=== PATIENT | female | born 1980 | race Two or more races ===

== ENCOUNTER 2021-05-14 07:09 | Outpatient (CLI) | payer BC ==
[2021-05-15] MEDS ORDERED: MONT10TA33 PO (13:13)
[2021-05-15] MEDS ORDERED: FAMO-132 PO (13:13)
[2021-05-17] MEDS ORDERED: IBUP-1957 PO (13:25)
[2021-05-17] MEDS ORDERED: HYDR-3972 PO (13:25)
== END 2021-05-14 23:59 | disposition home or self-care (01) ==
LOC: LAB 07:09
PROVIDERS: ATTEND Internal Medicine
DX: Z01.812 Encounter for preprocedural laboratory examination (principal); Z20.822 Contact with and (suspected) exposure to COVID-19

== ENCOUNTER 2021-05-15 05:24 | Inpatient (IN) | payer BC ==
[~2021-05-15] VITALS: Ht 160 cm; Wt 68.0 kg
[2021-05-15] MEDS ORDERED: CEFAZOLIN 50 ML IV ONE (05:44)
[2021-05-15 06:17] LABS: *URINE HCG, QUAL NEG (NEGATIVE)
[2021-05-15] MEDS ORDERED: METHYLENE BLUE 50 MG/10 ML AMPUL (0.5%) ONE (06:46)
[2021-05-15] MEDS ORDERED: BUPIVACAINE/EPI PF 0.25% 30 ML VIAL ONE (06:47)
[2021-05-15] MEDS ORDERED: HYDROMORPHONE 2 MG/1 ML DISP.SYRIN ONE (07:21)
[2021-05-15] MEDS ORDERED: MIDAZOLAM HCL 2 MG/2 ML VIAL ONE (07:21)
[2021-05-15] MEDS ORDERED: ROCURONIUM BROMIDE 50 MG/5 ML VIAL ONE (07:22)
[2021-05-15] MEDS ORDERED: MORPHINE SULFATE 4 MG/1 ML DISP.SYRIN IV PRN ×2 (09:45→20:00)
[2021-05-15] MEDS ORDERED: ONDANSETRON 4 MG/2 ML VIAL IV PRN (09:45)
[2021-05-15] MEDS ORDERED: HYDROMORPHONE 1 MG/1 ML DISP.SYRIN ONE (10:12)
[2021-05-15 10:40] VITALS: BP 120/65
[2021-05-15 10:55] VITALS: BP 115/68
--- NOTE | 2021-05-15 11:00 | NUR ---
received from ER still sleepy but arousable, able to follow instructions, vs taken, initial assessment done, ivf [id number] infusing at 100ml/hr- placed on iv pump, on R/A, no shortness of breath noted, abdominal dsg dry and intact, no bowel sounds noted, kept npo for now , IS done-able todo up to 1500ml level, oviedo cath draining light yellow urine, continue to monitor, safety measures initiated, call light within reach
[2021-05-15 11:24] VITALS: BP 109/74
[2021-05-15] MEDS ORDERED: MORPHINE SULFATE 2 MG/1 ML DISP.SYRIN IV PRN (12:30)
[2021-05-15] MEDS ORDERED: HYDROCODONE/APAP 5-325MG TABLET PO PRN (12:30)
[2021-05-15] MEDS ORDERED: ACETAMINOPHEN 325 MG TABLET PO PRN (12:30)
[2021-05-15] MEDS ORDERED: SENNOSIDES 1 TABLET PO PRN (12:30)
[2021-05-15] MEDS ORDERED: DOCUSATE SODIUM 100 MG CAPSULE PO PRN (12:30)
--- NOTE | 2021-05-15 13:05 | NUR ---
c/o pain for surgical site 06/16, medicated with morphine 2mg as ordered prn, deep breathing exercisers done- tolerated well, moved legs very well
[2021-05-15] MEDS ORDERED: MONT10TA33 PO (13:13)
[2021-05-15] MEDS ORDERED: FAMO-132 PO (13:13)
--- NOTE | 2021-05-15 15:00 | NUR ---
oral care done, kept still npo, continue to monitor
[2021-05-15] MEDS: CEFAZOLIN 1 G in IV DEXTROSE 5% 50 ML IV SCH ×2 (15:50→23:42)
[2021-05-15 16:00] VITALS: BP 104/68
[2021-05-15 16:35] VITALS: BP 114/68
[2021-05-15] MEDS: HYDROMORPHONE 1 MG/1 ML DISP.SYRIN IV PRN ×2 (16:38→23:47)
[2021-05-15] MEDS: IV D5LR 1,000 ML IV PRN (16:45)
--- NOTE | 2021-05-15 16:45 | NUR ---
c/o post-op pain- BP 114/64 HR 72, more awake now, on the phone, visitor at bedside, medicated wisth Dilaudid 1mg iv as ordered breakthrough pain, IS done x 10 up to 2000ml level, good out put in the oviedo bag noted, call light within reach
--- NOTE | 2021-05-15 18:10 | NUR ---
c/o nausea- medicated with zofran 4mg iv prn, states pain lesser, abd. dsg dry and intact, voided qs, vs wnl, all needs attended and met, call light within reach
[2021-05-15] MEDS: ONDANSETRON 4 MG/2 ML VIAL IV PRN (18:11)
[2021-05-15 20:24] VITALS: BP 104/62
[2021-05-16] MEDS: IV D5LR 1,000 ML IV PRN (00:07)
[2021-05-16 04:00] VITALS: BP 108/57
[2021-05-16] MEDS: HYDROMORPHONE 1 MG/1 ML DISP.SYRIN IV PRN (04:18)
[2021-05-16] MEDS ORDERED: ACETAMINOPHEN/CODEINE 300-30 MG TABLET PO PRN ×2 (06:00→10:00)
[2021-05-16 06:36] LABS: HEMATOCRIT 28.8 % (31.2-41.9); MEAN CORPUSCULAR VOLUME 71.7 fL (75.5-95.3); PLATELET COUNT (AUTO) 186 K/uL (179-408)
[2021-05-16 07:25] LABS: BILIRUBIN,TOTAL 0.5 mg/dL (0.2-1.0); CREATININE 0.7 mg/dL (0.6-1.3); POTASSIUM 3.2 mmol/L (3.5-5.1); TOTAL PROTEIN, SERUM 5.6 g/dL (6.4-8.2)
[2021-05-16 08:00] VITALS: BP 129/87
[2021-05-16] MEDS: ONDANSETRON 4 MG/2 ML VIAL IV PRN (08:54)
[2021-05-16] MEDS ORDERED: IBUPROFEN 800 MG TABLET PO PRN (10:00)
[2021-05-16 11:47] VITALS: BP 101/64
[2021-05-16] MEDS: POTASSIUM CHLORIDE 20 MEQ TAB.PRT.SR PO SCH ×2 (14:16→16:45)
[2021-05-16 16:12] VITALS: BP 110/65
[2021-05-16] MEDS: DOCUSATE SODIUM 100 MG CAPSULE PO SCH (16:46)
--- NOTE | 2021-05-16 18:45 | NUR ---
Patient is alert/oriented x4, denies pain. Dr. Barry made rounds or to d/c FC, patient is able to void. Did not request any pain medication during the shift. IV infusion dc, kept heplock in place per MR order. MD removed dressing, covered with dry dressing. Staple removal kit, steristrips at bedside per MD request, reg will be removed tomorrow 05/17. Patient is able to pass gas, MD order regular diet. Patient tried to get up and sat on the chair, tolerated well. She was noted with N/V at the start of the shift x1, no episode thereafter. No distress identified. Frequent visual check done. Kept call light within reach. Assisted with ADLs. All needs attended. Kept environment safe. All due meds given as ordered. Will endorse to the next shift for continuity of care.
[2021-05-16 20:00] VITALS: BP 107/74
[2021-05-17 04:00] VITALS: BP 124/58
[2021-05-17 06:34] LABS: HEMATOCRIT 28.7 % (31.2-41.9); MEAN CORPUSCULAR HEMOGLOBIN 23.1 uug (24.7-32.8); MEAN CORPUSCULAR VOLUME 72.1 fL (75.5-95.3); PLATELET COUNT (AUTO) 179 K/uL (179-408)
[2021-05-17 07:00] LABS: CREATININE 0.6 mg/dL (0.6-1.3); MAGNESIUM 1.9 mg/dL (1.8-2.4); PHOSPHOROUS 3.3 mg/dL (2.5-4.9); POTASSIUM 3.6 mmol/L (3.5-5.1)
--- NOTE | 2021-05-17 08:00 | NUR ---
awake alert and oriented x4, very pleasant, ambulated to BR and voided qs, states feeling better, taking food well, no n/v, abdominal dsg dry and intact, passing gas but no BM yet, explained plan of care- verbalized understanding, call light within reach
[2021-05-17] MEDS: DOCUSATE SODIUM 100 MG CAPSULE PO SCH (08:27)
[2021-05-17] MEDS ORDERED: MONTELUKAST SODIUM 10 MG TABLET PO SCH (09:00)
[2021-05-17] MEDS ORDERED: FAMOTIDINE 20 MG TABLET PO SCH (09:00)
--- NOTE | 2021-05-17 09:15 | NUR ---
seen by PT- see notes, orthostatic BP done and recorded Addendum: 05/17/21 at 1220 by BHARGAVI MILLAN RN ERROR
--- NOTE | 2021-05-17 09:40 | NUR ---
spoke to Dr Barry- updated on pt's condition- ok to be d/cd today- will come after lunch to see pt
--- NOTE | 2021-05-17 10:00 | NUR ---
seen by Baljeet Barrios RIPPLER -to be d/c today
--- NOTE | 2021-05-17 11:15 | NUR ---
seen by Baljeet Barrios NP and spoke to ASHLEY and spoke at length with her- see notes Addendum: 05/17/21 at 1220 by BHARGAVI MILLAN RN ERROR
[2021-05-17 11:25] VITALS: BP 101/64
--- NOTE | 2021-05-17 12:30 | NUR ---
Dr Barry here and removed reg and placed steri strips over incision- clean and dry, no redness noted, covered with ABD dsg- to go home
[2021-05-17] MEDS ORDERED: HYDR-3972 PO (13:25)
[2021-05-17] MEDS ORDERED: IBUP-1957 PO (13:25)
--- NOTE | 2021-05-17 14:07 | NUR ---
discharge instructions given-verbalized understanding, saline lock removed- no swelling/redness noted on site. Prescription by Dr Barry with pt, in stable condition
[2021-05-17] MEDS ORDERED: DEXAMETHASONE SOD PHOSPHATE 4 MG INJ IV ONE (15:44)
[2021-05-17] MEDS ORDERED: CEFAZOLIN 1 G VIAL IM ONE (15:44)
[2021-05-17] MEDS ORDERED: GLYCOPYRROLATE 0.2 MG/ML VIAL IJ ONE (15:44)
[2021-05-17] MEDS ORDERED: KETOROLAC TROMETHAMINE 30 MG INJ IM ONE (15:44)
[2021-05-17] MEDS ORDERED: ONDANSETRON 4 MG/2 ML VIAL IV ONE (15:44)
[2021-05-17] MEDS ORDERED: LIDOCAINE-MPF 2% 5 ML VIAL IJ ONE (15:44)
[2021-05-17] MEDS ORDERED: SEVOFLURANE 250 ML BOTTLE IH ONE (15:44)
[2021-05-17] MEDS ORDERED: NEOSTIGMINE METHYLSULFATE 10 MG/10 ML VIAL IM ONE (15:44)
[2021-05-17] MEDS ORDERED: PROPOFOL 200 MG/20 ML BOTTLE IV ONE (15:44)
--- NOTE | 2021-05-17 15:45 | NUR ---
escorted to car per w/c under 's care, pt in stable condition, all belongings with her
== END 2021-05-17 15:45 | disposition home or self-care (01) | DRG 743 ==
LOC: DS 05:24 → MEDSURG3 11:24
PROVIDERS: ADMIT Registered Nurse; ATTEND Registered Nurse
PROC: 0UT90ZL Resection of Uterus, Supracervical, Open Approach (ICD-10-PCS; principal; 2021-05-15)
PROC: 0UT70ZZ Resection of Bilateral Fallopian Tubes, Open Approach (ICD-10-PCS; 2021-05-15)
PROC: 0UT10ZZ Resection of Left Ovary, Open Approach (ICD-10-PCS; 2021-05-15)
PROC: 0U5B0ZZ Destruction of Endometrium, Open Approach (ICD-10-PCS; 2021-05-15)
DX: N80.0 Endometriosis of uterus (principal); N80.1 Endometriosis of ovary; N73.6 Female pelvic peritoneal adhesions (postinfective); D25.2 Subserosal leiomyoma of uterus; D27.1 Benign neoplasm of left ovary
CPT/HCPCS: 36415; 83735; 84100; 84703; 85025; 86850; 86900; 86901; 86920; 93005; A4649; A4663; G0378; J0690; J1100; J1170; J1885; J2250; J2270; J2405; J3490; J7060; J7120

== ENCOUNTER 2023-09-22 05:52 | Day surgery (SDC) | payer BC ==
[~2023-09-22 05:52] MED LIST: FAMO-132 PO; HYDR-3972 PO; IBUP-1957 PO; MONT10TA33 PO
[2023-09-22 06:29] LABS: BASOPHILS # (AUTO) 0.3 K/UL (0.0-0.2); BASOPHILS % (AUTO) 3.1 % (0.0-2.0); EOSINOPHILS # (AUTO) 0.2 K/uL (0.0-0.7); EOSINOPHILS % (AUTO) 2.2 % (0.0-7.0); HEMATOCRIT 40.5 % (31.2-41.9); LYMPHOCYTES # (AUTO) 2.4 K/uL (0.8-4.8); LYMPHOCYTES % (AUTO) 27.4 % (20.5-51.5); MEAN CORPUSCULAR HEMOGLOBIN 22.8 uug (24.7-32.8); MEAN CORPUSCULAR HGB CONC 32 g/dL (32.3-35.6); MEAN CORPUSCULAR VOLUME 71.1 fL (75.5-95.3); MONOCYTES # (AUTO) 0.5 K/uL (0.1-1.30); MONOCYTES % (AUTO) 5.9 % (0.0-11.0); NEUTROPHILS # (AUTO) 5.4 K/uL (1.8-8.9); NEUTROPHILS % (AUTO) 61.4 % (38.5-71.5); PLATELET COUNT (AUTO) 311 K/uL (179-408); RED BLOOD CELL COUNT(AUTO) 5.69 MIL/uL (3.63-4.92); RED CELL DISTRIBUTION WIDTH 15.3 % (12.3-17.7); WHITE BLOOD COUNT (AUTO) 8.7 K/uL (3.8-11.8)
[2023-09-22 06:40] LABS: *BILIRUBIN,URIN NEGATIVE (NEGATIVE); *BLOOD, URINE 3+ (NEGATIVE); *CLARITY,URINE CLEAR (CLEAR); *COLOR,URINE YELLOW (YELLOW); *KETONES,URINE TRACE (NEGATIVE); *PROTEIN,URINE 2+ (NEGATIVE); *UROBILINOGEN,URINE 0.2 E.U./dl (NORMAL); LEUKOCYTE ESTERASE ,URINE NEGATIVE (NEGATIVE); NITRITE, URINE NEGATIVE (NEGATIVE); PH,URINE 5.5 (5.0-8.0); UGLUCOSE NEGATIVE (NEGATIVE)
[2023-09-22 06:41] LABS: *URINE HCG, QUAL NEGATIVE (NEGATIVE)
[2023-09-22] MEDS ORDERED: FENTANYL CITRATE 100 MCG/2 ML AMPUL ONE (06:56)
[2023-09-22 06:57] LABS: DIFFERENTIAL COMMENT 1
[2023-09-22 09:13] LABS: CALCIUM 9.1 mg/dL (8.5-10.1); CREATININE 0.7 mg/dL (0.6-1.3); POTASSIUM 3.8 mmol/L (3.5-5.1)
[2023-09-22 09:18] LABS: BACTERIA,URINE MANY /HPF (NONE SEEN); MUCUS,URINE MODERATE /LPF (0-FEW); SQUAMOUS EPITHELIAL CELL,UR MANY /HPF (NONE SEEN)
[2023-09-22 09:24] LABS: ALBUMIN 4.2 g/dL (3.4-5.0); BILIRUBIN,TOTAL 0.4 mg/dL (0.2-1.0); TOTAL PROTEIN, SERUM 8.1 g/dL (6.4-8.2)
[2023-09-22 10:15] VITALS: TEMP 98.1
== END 2023-09-22 10:35 | disposition home or self-care (01) ==
LOC: DS 05:52
PROVIDERS: ATTEND Internal Medicine Gastroenterology
DX: K59.00 Constipation, unspecified (principal); R10.13 Epigastric pain; R10.9 Unspecified abdominal pain; K29.50 Unspecified chronic gastritis without bleeding; K21.00 Gastro-esophageal reflux disease with esophagitis, without bleeding; B96.81 Helicobacter pylori [H. pylori] as the cause of diseases classified elsewhere; K64.8 Other hemorrhoids; K63.89 Other specified diseases of intestine; M19.90 Unspecified osteoarthritis, unspecified site; G43.909 Migraine, unspecified, not intractable, without status migrainosus; Z79.899 Other long term (current) drug therapy; Z90.710 Acquired absence of both cervix and uterus; Z98.51 Tubal ligation status; Z98.890 Other specified postprocedural states
CPT/HCPCS: 36415; 84703; 85025; 85730; 88313-TC; 88342; A4663; J3010; J7120

== ENCOUNTER 2024-06-10 08:01 | Outpatient (CLI) | payer BC ==
[2024-06-10 08:50] LABS: BASOPHILS # (AUTO) 0.1 K/UL (0.0-0.2); BASOPHILS % (AUTO) 0.8 % (0.0-2.0); DIFFERENTIAL COMMENT 0; EOSINOPHILS # (AUTO) 0.1 K/uL (0.0-0.7); EOSINOPHILS % (AUTO) 0.8 % (0.0-7.0); HEMOGLOBIN 12.2 g/dL (10.9-14.3); LYMPHOCYTES # (AUTO) 2.5 K/uL (0.8-4.8); LYMPHOCYTES % (AUTO) 28.8 % (20.5-51.5); MEAN CORPUSCULAR HEMOGLOBIN 22.6 uug (24.7-32.8); MEAN CORPUSCULAR HGB CONC 32 g/dL (32.3-35.6); MEAN CORPUSCULAR VOLUME 70.4 fL (75.5-95.3); MONOCYTES # (AUTO) 0.4 K/uL (0.1-1.30); MONOCYTES % (AUTO) 4.8 % (0.0-11.0); NEUTROPHILS # (AUTO) 5.6 K/uL (1.8-8.9); NEUTROPHILS % (AUTO) 64.8 % (38.5-71.5); PLATELET COUNT (AUTO) 246 K/uL (179-408); RED BLOOD CELL COUNT(AUTO) 5.39 MIL/uL (3.63-4.92); RED CELL DISTRIBUTION WIDTH 15.3 % (12.3-17.7); WHITE BLOOD COUNT (AUTO) 8.7 K/uL (3.8-11.8)
[2024-06-10 11:32] LABS: ALBUMIN 3.7 g/dL (3.4-5.0); BILIRUBIN,TOTAL 0.3 mg/dL (0.2-1.0); CALCIUM 8.6 mg/dL (8.5-10.1); CREATININE 0.7 mg/dL (0.6-1.3); TOTAL PROTEIN, SERUM 7.3 g/dL (6.4-8.2)
== END 2024-06-10 23:59 | disposition home or self-care (01) ==
LOC: LAB 08:01
PROVIDERS: ATTEND Internal Medicine Gastroenterology
DX: Z00.01 Encounter for general adult medical examination with abnormal findings (principal); Z11.59 Encounter for screening for other viral diseases; A04.8 Other specified bacterial intestinal infections; R10.9 Unspecified abdominal pain
CPT/HCPCS: 36415; 83690; 85025